=== PATIENT | male | born 1995 | race American Indian/Alaskan Native ===

== ENCOUNTER 2017-02-04 23:51 | Emergency (ER) | payer OTHER ==
[2017-02-04] MEDS ORDERED: TYLENOL ONE (23:59)
[2017-02-05] MEDS ORDERED: TYLENOL PO ONE (00:07)
[2017-02-05 00:10] VITALS: BP 125/82
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
--- NOTE | 2017-02-05 14:38 | ED Elopement Review ---
ED Pt Elopement review - Call Back decision Pt Call Back Decision: No action required
== END 2017-02-05 04:37 | disposition left against medical advice (07) ==
LOC: ED 23:51
DX: M54.2 Cervicalgia (principal); M25.511 Pain in right shoulder; M25.561 Pain in right knee; M25.562 Pain in left knee; R68.84 Jaw pain; M25.521 Pain in right elbow; Y04.8XXA Assault by other bodily force, initial encounter; Y93.89 Activity, other specified; Y99.8 Other external cause status; Y92.89 Other specified places as the place of occurrence of the external cause; Z53.21 Procedure and treatment not carried out due to patient leaving prior to being seen by health care provider
CPT/HCPCS: 70450; 70486; 72125